=== PATIENT | male | born 1945 | race Caucasian/White ===

== ENCOUNTER 2017-08-14 06:37 | Day surgery (SDC) | payer OTHER ==
[~2017-08-14 06:37] MED LIST: ASPIRIN81 M1 PO; COZAAR50 MG PO; FORTAMET1000 MG PO; SIMVASTATIN40 MG PO; SYNTHROID50 MCG PO
== END 2017-08-14 12:25 | disposition home or self-care (01) ==
LOC: CIR.AMB 06:37
DX: M48.02 Spinal stenosis, cervical region (principal)